=== PATIENT | male | born 1990 | race Caucasian/White ===

== ENCOUNTER 2017-07-10 21:42 | Emergency (ER) | payer OTHER ==
[2017-07-10 22:19] VITALS: BP 133/70; PULSE 84; RESP 20; TEMP 98.7; O2SAT 100
--- NOTE | 2017-07-10 22:23 | C.PDOC ---
History Of Present Illness 27 yo male come in for evaluation of right wrist pain developed since early today after sustained mechanical fall. Pt sts, "fell down, trying to break fall with right hand". Pt denies pain as localized over radial aspect Right wrist with with movement. Otherwise, pt denies head injury, deformity, weakness, sensory or vascular deficits to Right hand. Ambulate to Ed for evaluation, not in any apparent distress., Time Seen by Provider: 07/10/17 22:22 Chief Complaint (Nursing): Upper Extremity Problem/Injury History Per: Patient Onset/Duration Of Symptoms: Gradual Past Medical History Reviewed: Historical Data, Nursing Documentation, Vital Signs Vital Signs: Last Vital Signs Temp 98.7 F 07/10/17 22:12 Pulse 84 07/10/17 22:12 Resp 20 07/10/17 22:12 BP 133/70 07/10/17 22:12 Pulse Ox 100 07/10/17 22:59 - Medical History PMH: No Chronic Diseases Family History: States: Unknown Family Hx - Social History Hx Alcohol Use: Yes Hx Substance Use: No - Immunization History Hx Tetanus Toxoid Vaccination: No Hx Influenza Vaccination: No Hx Pneumococcal Vaccination: No Review Of Systems Except As Marked, All Systems Reviewed And Found Negative. Constitutional: Negative for: Fever, Chills Eyes: Negative for: Vision Change Cardiovascular: Negative for: Chest Pain Genitourinary: Negative for: Incontinence Musculoskeletal: Positive for: Other (Right wrist pain) Skin: Negative for: Rash, Bruising Neurological: Negative for: Weakness, Numbness, Altered Mental Status, Headache , Dizziness Physical Exam - Physical Exam Appears: Well, Non-toxic, No Acute Distress Skin: Normal Color, Warm, No Rash, No Ecchymosis Head: Atraumatic, Normacephalic Eye(s): bilateral: PERRL Neck: No Midline Cervical Tenderness, No Paracervical Tenderness, No Step Off Deformity, Supple Chest: Symmetrical, No Deformity, No Tenderness Back: No Vertebral Tenderness, No Paraspinal Tenderness Extremity: Normal ROM (mild discomfort Right wrist flexion), Tenderness (mild tenderness over radial asepct Right wrist. NO palpable deformity, no neurovscular deficits distally to injury.), Capillary Refill (less than 2sec to Right hand), No Deformity, No Swelling Neurological/Psych: Oriented x3, Normal Speech, Normal Motor, Normal Sensation, Normal Reflexes ED Course And Treatment O2 Sat by Pulse Oximetry: 100 Pulse Ox Interpretation: Normal - Other Rad Right wrist X-Ray: Interpreted by Me, Viewed By Me Interpretation: (-) acute fx or dislocation Progress Note: On re-eval, pt is afebrile, hemodynamicaly stable. Non-toxic. AMbulatoy rin ED with stable gait. Head: AT/NC. RUE: exam c/w mild tendernes sover Right wrist radial aspect, No deformity, no sckin changes, no neurovascular deficits. Imaging review and appears without acute findings. Wrist splint applied. Pt advised and ref. to f/u with hand specialist in 2-3 days for re-eavl. returnb if any new changes. Orthopedic Time Performed: 22:35 Time Out: Side verified, Site verified, Patient ID confirmed Procedure: Splint Type: Volar Location: Right, Wrist Consent obtained: Verbal Performed by: Mid-level Provider Diagnosis: Sprain Disposition Counseled Patient/Family Regarding: Studies Performed, Diagnosis, Need For Followup, Rx Given - Disposition Referrals: [facility] [Outside] Mi Walker MD [Staff Provider] - Disposition: HOME/ ROUTINE Disposition Time: 22:40 Condition: STABLE Additional Instructions: SPLINT FOR 2 WEEKS TAKE IBURPOFEN TWICE DAILY AFTER FOOD FOR 1-2 WEEKS FOLLOW UP WITH HAND SPECIALIST IN 2-3 DAYS FOR RE-EVALUATION. RETURN TO ED IF ANY WORSENING OR NEW CHANGES. Prescriptions: Ibuprofen [Motrin Tab] 600 mg PO Q8 #14 tab Instructions: Wrist Sprain (ED) Forms: [email or web address] (Nepali) - Clinical Impression Clinical Impression: Wrist sprain
--- NOTE | 2017-07-11 08:46 | RAD ---
PROCEDURE: Right Wrist Radiographs. HISTORY: injury COMPARISON: None. FINDINGS: BONES: Normal. No fracture. JOINTS: Normal. No dislocation. SOFT TISSUES: Mild circumferential soft tissue swelling/increased abort density -carpus level OTHER FINDINGS: None. IMPRESSION: Soft tissue swelling. No fracture or dislocation
== END 2017-07-10 23:45 | disposition home or self-care (01) ==
LOC: C.ER 21:42
DX: S63.501A Unspecified sprain of right wrist, initial encounter (principal); W10.8XXA Fall (on) (from) other stairs and steps, initial encounter; Y92.89 Other specified places as the place of occurrence of the external cause

== ENCOUNTER 2018-02-12 14:10 | Emergency (ER) | payer OTHER ==
[2018-02-12 14:19] VITALS: BP 128/76; PULSE 105; RESP 20; TEMP 101.5; O2SAT 96
--- NOTE | 2018-02-12 14:49 | C.PDOC ---
History Of Present Illness <Kaylin Rodriguez - Last Filed: 02/12/18 15:04> <Keven Joel DO - Last Filed: 02/12/18 18:25> CC: Fever and Sore throat HPI: Patient is a 27 year old with no known past medical history who presents to the ED with complaint of fever and sore throat. Patient states that he noted sore throat on saturday and had some body aches since last after he went to the gym. Patient admits to subjective fever, chills, night sweat x1 day, sinus congestion, frontal headache, mild facial pain and worsening sore throat. Patient denies nausea, vomiting, diarrhea, sick contact and cough. (Kaylin Rodriguez) History Per: Patient History/Exam Limitations: no limitations Onset/Duration Of Symptoms: Days Current Symptoms Are (Timing): Still Present Severity: Mild Pain Scale Rating Of: 4 <Kaylin Rodriguez - Last Filed: 02/12/18 15:04> <Keven Joel DO - Last Filed: 02/12/18 18:25> Time Seen by Provider: 02/12/18 14:22 Chief Complaint (Nursing): Fever Past Medical History Family History: States: Unknown Family Hx - Social History Hx Alcohol Use: Yes Hx Substance Use: No - Immunization History Hx Tetanus Toxoid Vaccination: No Hx Influenza Vaccination: No Hx Pneumococcal Vaccination: No <Kaylin Rodriguez - Last Filed: 02/12/18 15:04> Vital Signs: Last Vital Signs Temp 101.5 F H 02/12/18 14:16 Pulse 105 H 02/12/18 14:16 Resp 20 02/12/18 14:16 BP 128/76 02/12/18 14:16 Pulse Ox 96 02/12/18 15:05 Review Of Systems Constitutional: Positive for: Fever, Chills, Sweats. Negative for: Weakness, Malaise, Weight loss, Other ENT: Positive for: Nose Congestion, Throat Pain. Negative for: Ear Pain, Ear Discharge, Nose Discharge, Mouth Pain, Mouth Swelling, Throat Swelling Cardiovascular: Negative for: Chest Pain, Palpitations Respiratory: Negative for: Cough, Shortness of Breath Gastrointestinal: Negative for: Nausea, Vomiting, Abdominal Pain, Diarrhea Musculoskeletal: Negative for: Neck Pain Neurological: Negative for: Dizziness <Kaylin Rodriguez - Last Filed: 02/12/18 15:04> Physical Exam - Physical Exam Appears: Well Skin: Normal Color, Warm, No Pale, No Rash Head: Atraumatic, Normacephalic, No Tenderness, No Abrasion, No Laceration Eye(s): bilateral: EOMI Ear(s): Bilateral: Normal Nose: Normal, No Flaring, No Discharge Oral Mucosa: Moist Tongue: Normal Appearing Lips: Other (Dry ) Teeth: Normal Dentition Gingiva: Normal Appearing Throat: Erythema, Exudate, No Drooling, No Mass, Other (Increased secretion) Lymphatic: Adenopathy Cardiovascular: Rhythm Regular, No Rhythm Irregular, No Murmur Respiratory: Normal Breath Sounds, No Decreased Breath Sounds, No Accessory Muscle Use, No Rales Gastrointestinal/Abdominal: Normal Exam, Bowel Sounds, Soft, No Tenderness Back: Normal Inspection Extremity: Normal ROM, No Tenderness, No Calf Tenderness Neurological/Psych: Oriented x3, Normal Speech <Roro Rodrigueztanja Juana - Last Filed: 02/12/18 15:04> ED Course And Treatment O2 Sat by Pulse Oximetry: 96 <Roro Rodrigueztanja Juana - Last Filed: 02/12/18 15:04> Disposition Discussed With : Keven Joel DO - Disposition Disposition Time: 15:00 <Kaylin Rodriguez - Last Filed: 02/12/18 15:04> - Disposition Disposition Time: 14:15 <Keven Joel DO - Last Filed: 02/12/18 18:25> - Disposition Disposition: HOME/ ROUTINE Condition: GOOD Additional Instructions: Please discharge patient home Please take Penicillin Potassium 500mg PO Q12H for 10 days. Please take with yogurt Please follow up with [facility] in order to establish care, Please continue to hydrate Please return to the hospital if symptoms worsens Prescriptions: Penicillin V Potassium 500 mg PO Q12H 10 Days #20 tablet Instructions: Sore Throat, Adult (DC), Cough, Runny Nose, and the Common Cold ( DC) Forms: General Discharge Instructions, [facility] (German) - Clinical Impression Clinical Impression: Strep sore throat, Fever - PA / FIRST AID ATTENDANT / Resident Statement POWER has reviewed & agrees with the documentation as recorded. / has examined the patient and agrees with the treatment plan. <Keven Joel DO - Last Filed: 02/12/18 18:25>
== END 2018-02-12 15:16 | disposition home or self-care (01) ==
LOC: C.ER 14:10
DX: J02.0 Streptococcal pharyngitis (principal); R50.9 Fever, unspecified; F17.210 Nicotine dependence, cigarettes, uncomplicated